=== PATIENT | female | born 1985 | race African-American/Black ===

== ENCOUNTER → 2016-05-30 | Day surgery (SDC) | payer MEDICAID ==
[2016-04-18 21:48] VITALS: BMI 23.4
[~2016-05-30] MED LIST: BUPIVACAINE 0.25% 30 ML VIAL ONE; CEFAZOLIN 1 GM VIAL ONE; FENTANYL 100 MCG/2 ML VIAL IV PRN; HYDROmorphone 1 MG INJECTION IV PRN; LABETALOL 20 MG/4 ML SYRINGE IV PRN; LABETALOL 200 MG TAB PO SCH; MEPERIDINE 25 MG/ML TUBEX IV PRN; ONDANSETRON HCL 4 MG ODT TAB PO PRN; ONDANSETRON HCL 4 MG/2 ML VIAL IV PRN; hydrALAZINE 20 MG/ML VIAL IV PRN
[2016-05-30 06:38] VITALS: TEMP 98.1
[2016-05-30 09:06] VITALS: PULSE 51
[2016-05-30 09:48] VITALS: BP 131/87
== END ==
LOC: SDC 06:10
PROVIDERS: ATTEND Obstetrics & Gynecology
DX: Z30.2 Encounter for sterilization (principal); I10 Essential (primary) hypertension; Z53.09 Procedure and treatment not carried out because of other contraindication
CPT/HCPCS: 81025; J3490; J0690; S0020

== ENCOUNTER → 2016-06-05 | Day surgery (SDC) | payer MEDICAID ==
[2016-04-18 21:48] VITALS: BMI 23.4
[~2016-06-05] MED LIST changes: +DEXAMETHASONE 4 MG/ML VIAL IV ONE; +FENTANYL 250 MCG/5 ML VIAL IV ONE; +GLYCOPYRROLATE 1 MG VIAL IM ONE; -LABETALOL 200 MG TAB PO SCH; +MIDAZOLAM 2 MG/2 ML VIAL IV ONE; +NEOSTIGMINE 1 MG/1 ML (1:1000) INJ 10 ML MDV IM ONE; +ONDANSETRON HCL 4 MG/2 ML VIAL IV ONE; +PROMETHAZINE 25 MG/ML VIAL IV PRN; +PROPOFOL 200 MG/20 ML VIAL IV ONE; +ROCURONIUM 50 MG/5 ML VIAL IV ONE
--- NOTE | 2016-06-05 10:44 | SC.ANESPOS ---
[id number] with elevated BP (baseline) and is advised to follow up w PCP) , Hemodynamically Stable, Pain Control Adequate Phase I & II Recovery Complete: Yes Apparent Anesthesia Complication: No : N - Vital Signs Blood Pressure: 180/88 Pulse: 48 Resp Rate: 18 O2 Sat: 100 Temp: 98.1 F
--- NOTE | 2016-06-05 10:56 | HIM.ANES ---
Anesthesia Evaluation & Plan Consented Procedure: LAPAROSCOPIC TUBAL LIGATION WITH CAUTERY - Focused Review of Systems Cardiac History: Yes: Hx Hypertension (UNCONTROLLED.. STARTED ON LABATELOL), Hx Cardiac Disorders HEENT: No: Other HEENT Problems Gastrointestinal: No: Hx Gastrointestinal Disorders Neurological/Musculoskeletal: No: Hx Neurological Disorders Psychological: No Hx Mental/Emotional Disorders Blood/Autoimmune: No: Hx Blood Transfusions, Hx Anemia, Hx AIDS, Hx Hepatitis (type) Smoking Status: Never smoker Past Social History: Denies: Amphetamine Use, Barbiturate Use, Benzodiazipine Use - Focused Physical Exam NPO since: 06/04/16 5413 Mallampati: Class II Thyromental Distance: Greater than 3 Neck: Full Range of Motion Dental: Normal - no significant findings Cardiovascular/Chest: Normal Respiratory: Lungs clear Any problems with anesthesia, including nausea and vomiting?: No (PATIENT HAD 3 EPIDURALS WITH NO PROBLEMS) Any relatives with a history of Malignant Hyperthermia?: No Beta Shar given (if appropriate): Yes Does the patient have a history of Motion Sickness-: No Other: Problem List Problem Status Onset 39 weeks gestation of Acute care following vaginal delivery Acute hypertension Acute Single live Acute Vaginal delivery Acute Allergies Allergy/AdvReac Type Severity Reaction Status Date / Time No Known Allergies Allergy Verified 06/05/16 10:02 Home Medications Medication Instructions Recorded Last Taken Type Labetalol HCl 200 mg PO BID 05/30/16 06/05/16 07:50 History Height and Weight Patient's height 5 ft Patient's weight 141 lb BMI 23.4 Vital Signs Temperature 98.1 F 06/05/16 10:44 Pulse Rate 48 L 06/05/16 10:44 Respiratory Rate 18 06/05/16 10:44 Blood Pressure 180/88 H 06/05/16 10:44 Pulse Oxygen Saturation 100 06/05/16 10:44 - Anesthetic Plan Anesthesia Type: General ASA Class: 2 -: I have examined this patient and reviewed the medical record. The patient has been assessed prior to anesthesia. Risks and benefits of anesthesia and anesthetic technique options have been discussed and all questions answered. The patient accepts the risk and desires me to proceed with the planned anesthetic.
--- NOTE | 2016-06-05 12:47 | HIMOPRPT ---
DATE OF PROCEDURE: 06/05/16 PREOPERATIVE DIAGNOSIS: 1) Mulitparity 2) Desires permanent sterility POSTOPERATIVE DIAGNOSIS: 1) Mulitparity 2) Desires permanent sterility PROCEDURE: Laparoscopic bilateral tubal ligation SURGEON: Connie Frakns DO. ANESTHESIA: General ESTIMATED BLOOD LOSS: Minimal. COMPLICATIONS: None. FINDINGS: Normal appearing tubes and ovaries PROCEDURE IN DETAIL: The patient was taken to the operating room, where general anesthesia was administered and found to be adequate. She was then prepped and draped in dorsal lithotomy position with the aid of Yellroxann stirrups and the bladder was then emptied with a Valdez catheter. Attention was then turned to the abdomen where Marcaine was injected at the infraumbilical incision site. A 5 millimeter incision was made with the scalpel and a trocar was inserted under direct visualization. At this time, pneumoperitoneum was created. The above findings were then noted. The fallopian tube on the left-hand side was identified, following the tube all the way to the fimbria. The medial 1/3 portion of the tube was grasped with the Kleppinger and fulgurated in 3 consecutive spaces x2. The same was carried out on the right-hand side. The tubes were reinspected and good fulguration was noted bilaterally. The procedure was then deemed to be over. The pneumoperitoneum was then released and the port was removed. The skin incision was then reapproximated using 3-0 Monocryl in a deep then subcuticular fashion. Dermabond was then applied. The sponge, lap, needle, and instrument counts were correct x2 and the patient was taken to the recovery room in stable condition.
[2016-06-05 14:34] VITALS: TEMP 98.1
[2016-06-05 15:24] VITALS: BP 164/107; PULSE 55
== END ==
LOC: SDC 09:06
PROVIDERS: ATTEND Obstetrics & Gynecology
PROC: 0U574ZZ Destruction of Bilateral Fallopian Tubes, Percutaneous Endoscopic Approach (ICD-10-PCS; principal; 2016-06-05 11:00)
DX: Z30.2 Encounter for sterilization (principal); I10 Essential (primary) hypertension; Z79.899 Other long term (current) drug therapy
CPT/HCPCS: 58670; 81025; J0690; J1100; J2250; J2405; J2710; J3010; J3490; S0020